=== PATIENT | female | born 1980 | race Asian ===

== ENCOUNTER 2018-07-05 12:44 | Day surgery (SDC) | payer OTHER ==
[~2018-07-05 12:44] MED LIST: CYCLOPENTOLATE 1% OPHTH DROPS 2 ML ONE; KETOROLAC 0.45% OPHTH DROPS ONE; PHENYLEPHRINE 2.5% OPHTH 2 ML DROPS ONE; PROPARACAINE 0.5% OPHTH DROPS 15 ML ONE
[2018-07-05] MEDS ORDERED: LACTATED RINGERS 1,000 ML IV ONE ×2 (12:59→17:19)
--- NOTE | 2018-07-05 13:10 | ANESTHESIA ---
Pre-Anesthesia VS, & Labs - Diagnosis Infertility - Procedure Diagnostic laparascopy, chromopertubation Height 5 ft 6 in Weight (kg) 58.6 kg Home Medications and Allergies Home Medications: Ambulatory Orders Ascorbic Acid [Vitamin C] 250 mg PO 06/29/18 Folic Acid 1 mg PO DAILY 06/29/18 Multivitamin [Multivitamins] 1 each PO 06/29/18 Ascorbic Acid [Vitamin C] 250 mg PO 06/29/18 Folic Acid 1 mg PO DAILY 06/29/18 Multivitamin [Multivitamins] 1 each PO 06/29/18 Allergies/Adverse Reactions: Allergies Allergy/AdvReac Type Severity Reaction Status Date / Time No Known Drug Allergies Allergy Verified 06/29/18 12:25 Anes History & Medical History - Medical History Cardiovascular: reports: None Pulmonary: reports: None Gastrointestinal: reports: None Urinary: reports: None Musculoskeletal: reports: None Endocrine/Autoimmune: reports: None Skin: reports: None
[2018-07-05 13:20] LABS: HCG UR QUAL NEGATIVE
[2018-07-05] MEDS ORDERED: ceFAZolin 2 GM/50 ML 2 GM/50 ML BAG IV ONE (13:25)
--- NOTE | 2018-07-05 13:44 | ANESTHESIA ---
Pre-Anesthesia VS, & Labs - Diagnosis female infertility - Procedure diagnostic laparoscopy Vital Signs: Temp Pulse Resp BP Pulse Ox 37.1 C 93 16 117/91 H 100 07/05/18 13:12 07/05/18 13:12 07/05/18 13:12 07/05/18 13:12 07/05/18 13:12 Height 5 ft 6 in Weight (kg) 57 kg - NPO >8 hours - Is Patient ?: No - Lab Results Lab results reviewed: Yes Home Medications and Allergies Home Medications: Ambulatory Orders Ascorbic Acid [Vitamin C] 250 mg PO 06/29/18 Folic Acid 1 mg PO DAILY 06/29/18 Multivitamin [Multivitamins] 1 each PO 06/29/18 Ascorbic Acid [Vitamin C] 250 mg PO 06/29/18 Folic Acid 1 mg PO DAILY 06/29/18 Multivitamin [Multivitamins] 1 each PO 06/29/18 Allergies/Adverse Reactions: Allergies Allergy/AdvReac Type Severity Reaction Status Date / Time No Known Drug Allergies Allergy Verified 07/05/18 13:11 Anes History & Medical History - Anesthetic History Anesthesia Complications: reports: No previous complications Family history of Anesthesia Complications: Denies Family history of Malignant Hyperthermia: Denies - Medical History Cardiovascular: reports: None Pulmonary: reports: None Gastrointestinal: reports: None Urinary: reports: None Musculoskeletal: reports: None Endocrine/Autoimmune: reports: None Skin: reports: None Exam General: Alert Dental: Other (bridge) Mouth Openin Fingerbreadth Neck Mobility: Normal Mallampati classification: II Thyromental Distance: greater than 6 cm Respiratory: Lungs clear, Normal breath sounds, No respiratory distress, No accessory muscle use Cardiovascular: Normal S1, Normal S2 Mental/Cognitive Status: Alert/Oriented X3, Normal for patient Cognitive Status: Within normal limits Plan Anesthesia Type: General Consent for Procedure(s) Verified and Reviewed: No Code Status: Attempt Resuscitation ASA classification: 2-Mild systemic disease Is this case an emergency?: No
[2018-07-05] MEDS ORDERED: METHYLENE BLUE 0.5% 50 MG/10 ML AMPULE ONE (13:52)
[2018-07-05] MEDS ORDERED: BUPIVACAINE 0.25% PF 30 ML VIAL ONE (13:52)
[2018-07-05] MEDS ORDERED: DEXAMETHASONE 4 MG/ML VIAL IVP ONE (16:00)
[2018-07-05] MEDS ORDERED: LIDOCAINE-MPF 2% 5 ML VIAL IM ONE (16:00)
[2018-07-05] MEDS ORDERED: ROCURONIUM 50 MG/5 ML VIAL IVP ONE (16:00)
[2018-07-05] MEDS ORDERED: ePHEDrine 50 MG/ML VIAL IVP ONE (16:00)
[2018-07-05] MEDS ORDERED: MIDAZOLAM 2 MG/2 ML VIAL IVP ONE (16:00)
[2018-07-05] MEDS ORDERED: fentaNYL 100 MCG/2 ML VIAL IVP ONE (16:00)
[2018-07-05] MEDS ORDERED: ONDANSETRON 4 MG/2 ML VIAL IVP ONE (16:00)
[2018-07-05] MEDS ORDERED: PROPOFOL 200 MG/20 ML VIAL IVP ONE (16:00)
--- NOTE | 2018-07-05 16:52 | OPERATIVE REPORT ---
Operative Report - General Procedure Date: 07/05/18 Planned Procedure: Laparoscopic right paratubal cystectomy, chromopertubation Pre-Op Diagnosis: Primary infertility, dysmenorrhea Procedure Performed: Laparoscopic bilateral salpingectomies, lysis of adhesions, chromopertubation, and excisional biopsy of vaginal lesion Post Op Diagnosis: Pelvic adhesions, nonpatent fallopian tubes, R paratubal cyst, vag lesion - Procedure Note Primary Surgeon: Dr. Steffany Rodrigeuz Secondary Surgeon: Dr. Yaw Fraser Anesthesia Provider: YULIA Saucedo Anesthesia Technique: General ET tube, Local Pathology: Left fallopian tube, Right fallopian tube and cyst, vaginal excisional biopsy posterior fornix IV Fluids (mL): 1,800 Estimated Blood Loss (mL): 10 Urine Output (mL): 75 Complications: None - Other Other Information/Narrative: Indications: The patient is a 38-year-old 0 female here for evaluation for primary infertility and dysmenorrhea with an ultrasound showing right paraovarian cysts, the largest measuring 5.7 cm. The patient had an infertility consult in [place] in January 2018, and a hysterosalpingogram showed bilateral proximal blockage of the fallopian tubes. However, visualization of the x-rays note the start of dye extravasation into the pelvic veins, making it possible the study was ended early and possibly suboptimal. She also has a history of dysmenorrhea lasting 3-4 days of her menses. She has success controlling the pain with ibuprofen she takes early during the cycle. She occasionally experien felicita midcycle cramping as well. She had asymptomatic chlamydia infection 4 years ago, which was treated upon diagnosis. She has no known history of pelvic inflammatory disease, and she has no pain with intercourse, abnormal vaginal discharge, or other medical complications. During the workup in [facility], a CA-125 was obtained by the physician there and returned with a result in the 40s. A repeat in [place] noted a value of 187, then another repeat was 46.5. Ultrasound at [place] noted a normal right ovary with 2 simple appearing right paraovarian cyst measuring 5.7 x 5.2 x 3.7 cm and 1.5 x 1.4 x 1.5 cm. The left ovary was normal in appearance. The uterus was notable for a left anterior fundal fibroid measuring 3.3 x 3.1 x 3.1 cm. Given the abnormal findings on ultrasound, unsureness regarding tubal patency, and the patient's history of dysmenorrhea, it was recommended she undergo laparoscopy for evaluation and management of the right paratubal cysts as well as evaluation for possible endometriosis. The risks, benefits, limitations, alternatives, and expectations of surgery were discussed. The consent was reviewed and signed prior to surgery. Findings: Exam under anesthesia noted the uterus was approximately 6 weeks in size, retroverted and fixed. A nodular lesion was also palpable posterior to the cervix. There were no adnexal masses palpable. Operative findings were notable for a 4-5 mm suspected endometriosis lesion in the vaginal vault, within the posterior fornix and approximately 2 cm posterior to the cervix. Within the abdomen and pelvis, extensive pelvic adhesions were present, obliterating the cul-de-sac and adhering left tube to ovary and uterus, right tube to right ovary and uterus, and uterus adhered to bowel posteriorly. A large 6-7 cm cystic mass was adjacent to the right tube (paratubal cysts), and the cystic mass appeared torsed around the tubo-ovarian ligament. The distal left tube was clubbed. Chromopertubation resulted in no fill and spill of either fallopian tube. There were no other endometriosis lesions present, and tissue was mildly friable consistent with possible infectious etiology for extensive adhesions. The ovari es were left in situ and adhered into the ovarian fossae bilaterally. Bowel adhesed into the cul-de-sac was notably inferior to the ovaries. The appendix was visualized and appeared normal. The liver edge appeared normal, and there was no [id number] present. There were no intraperitoneal adhesions noted. Procedure: The patient was taken to the operating room, where general endotracheal anesthesia was administered without difficulty. She was then positioned in the low dorsal lithotomy position with her lower extremities in Yellow Fin stirrups. Vagina, perineum, and abdomen were then prepped and draped in a sterile fashion, and an in-an-out catheterization was performed. Procedure Time-Out was then performed. A sterile bivalve speculum was then inserted into the vagina. A suspected endometriosis lesion was see posterior to the cervix. This was grasped with a dontrell clamp and excised using Bovie cautery circumferentially. The resulting defect in the vaginal mucosa (approx 1.5 cm in length) was closed with a running, locked suture of 2-0 vicryl. The incision appeared hemostatic. A single-tooth tenaculum was placed at the anterior lip of the cervix, and the cervix was serially dilated using Hegar dilators until a HUMI uterine manipulator could be advanced and the balloon inflated. The manipulator was attached to IV tubing and primed with methylene blue. Once the manipulator was placed, the tenaculum was removed from the cervix and the speculum removed from the vagina. The speculum was then removed. Attention was then turned to the laparoscopy. 0.25% Marcaine was injected infraumbilically, then a 7-mm horizontal skin incision made. A Verrees needle was then inserted through the anterior layers of the abdominal wall with saline drop test suggesting intraperitoneal placement. Carbon dioxide gas insufflation was then performed with appropriate opening pressures noted. Once 2 L of gas was instilled, a 0-degree, 5 mm laparoscope was inserted into a 5 mm trocar and passed through the anterior layers of the abdominal wall using Optiview technique. The abdomen was visualized, then 2 additional ports placed at the right and left lower quadrants, first instilling local anesthetic, then placing 5 mm ports. The patient was placed into Trendelenberg and bowel swept out of the cul-de-sac. Chromopertubation was then attempted, instilling methylene blue dye through the HUMI uterine manipulator. The dye passed readily into the uterus. However, there was no fill or spill of the fallopian tubes. The right fallopian tube and adhered paratubal cysts were grasped and pulled medially and superiorly. The torsed tubo-ovarian pedicle was crossclamped, cauterized, and cut using the PlasmaKinetic. Residual right fallopian tube was then further dissected off the right mesosalpinx using the PlasmaKinetic to dissect across the mesosalpinx then across the cornual region of the fallopian tube. The small portion of tube was removed from the abdomen through the trocar, to be sent with the pathology; however, the remaining large cyst and tube complex remained in the pelvis until the dissection was complete. The left fallopian tube was grasped and examined. Adhesiolysis was performed at the distal end of the fallopian tube to separate it from the left side of the uterus. Given the clubbed appearance of the left fallopian tube and lack of patency, the decision was made to remove the left fallopian tube, as the patient would require in vitro fertilization for conception. The left tubo-ovarian ligament was crossclamped, cauterized, and cut. The left mesosalpinx was then crossclamped, cauterized, and cut until the cornual portion of the fallopian tube was reached. Here the cornual fallopian tube was crossclamped, cauterized, and cut, it from the uterus. The tube was then set aside to later be removed at the time of the right fallopian tube. Additional adhesiolysis was performed of filmy adhesions of the uterus to the bowel posteriorly. This was performed with bovie cautery and endoshears, staying close to the uterine serosa and away from bowel. There was no evidence of injury to bowel, and the adhesion sites hemostatic after application of additional cautery on the uterine side. The pelvis was then irrigated, and any residual bleeding controlled with bovie cautery. The left lower quadrant 5 mm port was then removed, and the incision enlarged to approximately 2 cm. An 11 mm port was then placed to accommodate the Endo Catch bag, which was advanced into the abdomen. The right fallopian tube and cyst and the left fallopian tube were placed within the Endo Catch bag, which was then brought to the level of the skin. The bag was then opened, and the cyst incised and drained, allowing removal of the tube and cyst wall from the abdominal cavity without spillage of cyst contents. The 11 mm trocar was then replaced to maintain insufflation. Repeat visual examination of the pelvis and abdomen n oted no bleeding or concerns. At this point the laparoscopy was deemed complete, and all trochars were removed from the abdomen. The carbon dioxide gas was then allowed to escape. The left lower quadrant incision fascia was closed with 0 vicryl suture. The skin of all three incisions was then closed with 4-0 Monocryl in a subcuticular fashion, followed by application of Dermabond skin adhesive. The uterine manipulator had fallen out of the cervix during the case. The sterile bivalve speculum was reinserted to ensure that the tenaculum sites were hemostatic. No bleeding was noted at the tenaculum or biopsy site, and the speculum was then removed. At this point the procedure was deemed complete. The patient was then replaced supine, awakened, extubated, and transferred to the PACU in stable condition. There were no complications. Sponge, lap, and needle count were correct x 3.
[2018-07-05] MEDS: fentaNYL 100 MCG/2 ML VIAL ONE ×2 (17:09→17:15)
[2018-07-05] MEDS ORDERED: ONDANSETRON 4 MG/2 ML VIAL IVP PRN (17:38)
[2018-07-05] MEDS ORDERED: HYDROcod/ACETAM 10 MG/325 MG TABLET PO PRN (17:38)
[2018-07-05 18:35] VITALS: BP 124/82
== END 2018-07-05 19:25 | disposition home or self-care (01) ==
LOC: SDS 12:44 → MS2 18:25 → SDS 19:25
PROVIDERS: ATTEND Obstetrics & Gynecology
PROC: 3E0P7KZ Introduction of Other Diagnostic Substance into Female Reproductive, Via Natural or Artificial Opening (ICD-10-PCS; 2018-07-05)
PROC: 0UBG7ZZ Excision of Vagina, Via Natural or Artificial Opening (ICD-10-PCS; 2018-07-05)
PROC: 0UT74ZZ Resection of Bilateral Fallopian Tubes, Percutaneous Endoscopic Approach (ICD-10-PCS; principal; 2018-07-05 14:00)
DX: N97.1 Female infertility of tubal origin (principal); N83.8 Other noninflammatory disorders of ovary, fallopian tube and broad ligament; N89.8 Other specified noninflammatory disorders of vagina; N73.6 Female pelvic peritoneal adhesions (postinfective); N94.6 Dysmenorrhea, unspecified; Z87.891 Personal history of nicotine dependence; Z86.19 Personal history of other infectious and parasitic diseases
CPT/HCPCS: 57135; 58350; 58661; 81025; A9270; J0690; J7120

== ENCOUNTER 2019-03-26 08:21 | Outpatient (CLI) | payer OTHER | END 2019-03-26 08:22 | disposition home or self-care (01) | LOC: LAB 08:21 | PROVIDERS: ATTEND Obstetrics & Gynecology Reproductive Endocrinology | DX: Z32.01 Encounter for pregnancy test, result positive (principal); E07.9 Disorder of thyroid, unspecified | CPT/HCPCS: 36415; 84443; 84702 ==